=== PATIENT | female | born 1990 | race African-American/Black ===

== ENCOUNTER 2021-11-06 15:29 | Emergency (ER) | payer SELFPAY ==
[~2021-11-06] VITALS: Ht 167.6 cm; Wt 57.0 kg
[2021-11-06 15:34] VITALS: BP 137/92
[2021-11-06] MEDS ORDERED: FAMOTIDINE 20MG TABLET PO ONE (17:00)
[2021-11-06] MEDS ORDERED: MAGNESIUM/ALUMINUM HYDROXIDE/SIMETHICONE 30ML UDC PO ONE (17:00)
[2021-11-06] MEDS ORDERED: VISCOUS LIDOCAINE 2% 15 ML UDC MM PRN (17:30)
== END 2021-11-06 19:26 | disposition home or self-care (01) ==
LOC: ER 15:29
DX: K29.00 Acute gastritis without bleeding (principal); F15.10 Other stimulant abuse, uncomplicated; F17.210 Nicotine dependence, cigarettes, uncomplicated; Z71.6 Tobacco abuse counseling
CPT/HCPCS: 99283; 99406

== ENCOUNTER 2023-04-09 05:37 | Emergency (ER) | payer MEDICAID, OTHER ==
[~2023-04-09] VITALS: Ht 162.6 cm; Wt 61.0 kg
[2023-04-09 05:42] VITALS: O2SAT 100
[2023-04-09] MEDS: ZIPRASIDONE MESYLATE 20MG/VIAL IM STA (05:53)
[2023-04-09 06:08] LABS: BASOPHILS % 0.5 % (0.0-2.0); HEMATOCRIT. 31.3 % (36.0-48.0); HEMOGLOBIN. 10.2 g/dL (12.0-16.0); MEAN CORPUSCULAR HEMOGLOBIN 26.5 pg (28.0-32.0); MEAN CORPUSCULAR HGB CONC 32.7 g/dL (31.0-37.0); MEAN CORPUSCULAR VOLUME 81.1 fL (81.0-99.0); MEAN PLATELET VOLUME 8.5 fl (7.4-10.4); MONOCYTES % 8.5 % (2.0-8.0); PLATELET 251 x1000/uL (130-400); RED BLOOD CELL COUNT 3.86 mill/uL (4.2-5.4); RED CELL DISTRIBUTION WIDTH 19.8 % (11.6-14.6); WHITE BLOOD COUNT 9.3 x1000/uL (4.5-11.0)
[2023-04-09 06:22] LABS: ACETAMINOPHEN < 2 ug/mL (10-30); ALANINE AMINOTRANSFERASE < 7 IU/L (10-49); ASPARTATE AMINOTRANSFERASE 12 IU/L (<34); BILIRUBIN TOTAL 0.3 mg/dL (0.1-1.0); CALCIUM 8.4 mg/dL (8.7-10.4); CARBON DIOXIDE 25 mEq/L (21-32); CHLORIDE 108 mEq/L (98-107); CREATININE 0.7 mg/dL (0.6-1.0); GLUCOSE 92 mg/dL (70-105); POTASSIUM 3.3 mEq/L (3.5-5.1); PROTEIN TOTAL 7.1 g/dL (6.0-8.3); SODIUM 137 mEq/L (136-145); UREA NITROGEN BLOOD 8 mg/dL (9-23)
[2023-04-09 06:23] LABS: ETHANOL BLOOD < 10 mg/dL (<10)
[2023-04-09 07:17] LABS: HCG SCREEN NEGATIVE
[2023-04-09 12:50] VITALS: BP 130/80; PULSE 83; RESP 16; TEMP 98.8
== END 2023-04-09 13:48 | disposition home or self-care (01) ==
LOC: ER 05:40
DX: R46.2 Strange and inexplicable behavior (principal)
CPT/HCPCS: 80053; 80307; 80329; 80320; 84703; 85025; 36415; 71045; 96372; 99284; J3486; Z7610; G0480